=== PATIENT | female | born 1955 | race Caucasian/White ===

== ENCOUNTER 2022-06-08 01:25 | Day surgery (SDC) | payer MEDICARE, OTHER, SELFPAY ==
[2022-05-26 10:33] VITALS: BMI 42.6
--- NOTE | 2022-06-07 15:21 | PM.HPGS ---
History of Present Illness History of Present Illness Consent: Risks, benefits, and alternatives have been discussed and questions answered. Patient agrees to proceed with procedure. Chief complaint: Hx of colon polyps Narrative: Linh Garcia is a 67 year old female Referred for colon cancer screening. She had a polyp removed about 11 years ago. Review of Systems Review of Systems: All systems reviewed & are unremarkable except as noted in HPI and below PMFSH Social History Social History Smoking status: Never smoker Substance use type: does not use Living arrangements: with family Spiritual care concerns: No Meds Home Medications and Allergies Home Medications Medication Instructions Recorded Confirmed Type acetaminophen 500 mg tablet 1,000 mg PO BID 05/26/22 05/26/22 History apixaban 5 mg tablet (Eliquis) 5 mg PO Q12H 05/26/22 05/26/22 History irbesartan 150 1 tablet PO DAILY 05/26/22 06/08/22 History mg-hydrochlorothiazide 12.5 mg tablet sotalol 80 mg tablet 40 mg PO BID 05/26/22 05/26/22 History Allergies Allergy/AdvReac Type Severity Reaction Status Date / Time epinephrine AdvReac Other Verified 06/08/22 10:22 lisinopril AdvReac Cough Verified 06/08/22 10:22 Exam Const: General: alert Orientation/consciousness: patient oriented x3 Resp: Auscultation: clear to auscultation bilaterally Cardio: Rhythm: regular rhythm GI: GI Palp: Yes Soft to palpation and No Tenderness to palpation present (GI) Neuro: General: patient oriented x3 Assessment and Plan Assessment and plan (1) Colon cancer screening: Code(s): Z12.11 - Encounter for screening for malignant neoplasm of colon Status: Acute Assessment and Plan: Colonoscopy with possible biopsy or polypectomy or cautery or injection of substances.
[2022-06-08 10:24] VITALS: BP 163/78; PULSE 56; RESP 20; TEMP 36.4; O2SAT 99; BMI 43.0
[2022-06-08] MEDS: LACTATED RINGERS 1,000 ML 150 ML IV CONT (10:28)
--- NOTE | 2022-06-08 10:56 | P.PNAN_ITS ---
Anes - Initial Pre Proc Eval Procedure: Operation Date: 06/08/22 11:00 Proposed Procedures p Screening Colonoscopy - Bong Renae MD Date/Time: 06/08/22 10:56 Surgeon: Bong Renae MD Pre Op Diagnosis: Hx of colon polyps Patient Data Age: 67 Gender: F Height: 1.55 m Weight: 103.2 kg Last Vital Signs Temp 36.4 C 06/08/22 10:24 Pulse 56 L 06/08/22 10:24 Resp 20 06/08/22 10:24 BP 163/78 H 06/08/22 10:24 Pulse Ox 99 06/08/22 10:24 O2 Del Method Room Air 06/08/22 10:24 Allergies Allergy/AdvReac Type Severity Reaction Status Date / Time epinephrine AdvReac Other Verified 06/08/22 10:22 lisinopril AdvReac Cough Verified 06/08/22 10:22 Home Medications Medication Instructions Recorded Confirmed Type acetaminophen 500 mg tablet 1,000 mg PO BID 05/26/22 05/26/22 History apixaban 5 mg tablet (Eliquis) 5 mg PO Q12H 05/26/22 05/26/22 History irbesartan 150 1 tablet PO DAILY 05/26/22 06/08/22 History mg-hydrochlorothiazide 12.5 mg tablet sotalol 80 mg tablet 40 mg PO BID 05/26/22 05/26/22 History Patient hx anesthesia problems: post op nausea/vomiting Family hx anesthesia problems: none Results Review: All pre-operative results and documents have been reviewed as part of the pre- operative evaluation. PMFSH Past Medical History Medical History Afib Hypertension Social History Social History Smoking status: Never smoker Substance use type: does not use Living arrangements: with family Spiritual care concerns: No Anes - Eval Final PreProcedure Day of Procedure 06/08/22 10:56 Patient weight: morbidly obese Heart: regular rate and rhythm Lungs: clear to auscultation Airway: Mallampati scale class II Neurological: alert and oriented Last oral intake: >/= 8 hours ASA classification: III Emergent: no Anesthetic plan: proceed Anesthesia type and monitoring: general GIVS and standard monitoring Results Review: All pre-operative results and documents have been reviewed as part of the pre-operative evaluation. Informed Consent: The patient's anesthetic plan and its attendant risks and benefits were discussed with the patient/family/POA. Questions were solicited and answers provided to the satisfaction of the patient/family/POA.
[2022-06-08 11:24] VITALS: BP 104/55; PULSE 54; RESP 16; O2SAT 98
[2022-06-08 11:34] VITALS: BP 126/77; PULSE 58; RESP 16; O2SAT 98
[2022-06-08 11:44] VITALS: BP 150/79; PULSE 53; RESP 19; O2SAT 98
== END 2022-06-08 12:00 | disposition home or self-care (01) ==
PROVIDERS: PCP Internal Medicine; Visit Provider Internal Medicine Gastroenterology
PROC: 0DJD8ZZ Inspection of Lower Intestinal Tract, Via Natural or Artificial Opening Endoscopic (ICD-10-PCS; CPT 45378; principal; 2022-06-08 11:00)
DX: Z12.11 Encounter for screening for malignant neoplasm of colon (principal); K57.30 Diverticulosis of large intestine without perforation or abscess without bleeding; K63.5 Polyp of colon; I10 Essential (primary) hypertension; I48.91 Unspecified atrial fibrillation; E66.01 Morbid (severe) obesity due to excess calories; Z68.41 Body mass index [BMI] 40.0-44.9, adult; Z86.010 Personal history of colon polyps
CPT/HCPCS: 45385; 45381; 88305; J2704; J7120